=== PATIENT | male | born 1975 | race Caucasian/White ===

== ENCOUNTER 2022-10-30 15:15 | Inpatient (IN) | payer MEDICAID ==
[~2022-10-30] VITALS: Ht 165.1 cm; Wt 88.5 kg
[~2022-10-30 15:15] MED LIST: AMLO5TAB88 PO; CLON0.2T PO; METO25TA6 PO
[2022-10-30] MEDS ORDERED: DIPHENHYDRAMINE 50MG/ML VIAL IM STA (15:32)
[2022-10-30] MEDS ORDERED: OLANZAPINE 10 MG/VIAL IM STA (15:32)
[2022-10-30] MEDS ORDERED: LORAZEPAM 2MG/ML CPJ IM ONE (15:45)
[2022-10-30] MEDS ORDERED: SODIUM CHLORIDE 0.9% 1,000 ML IV ONE (15:45)
[2022-10-30 16:40] LABS: CLARITY URINE CLOUDY (CLEAR); COLOR URINE YELLOW (YELLOW); KETONES URINE NEGATIVE (NEGATIVE); LEUKOCYTE ESTERASE URINE TRACE (NEGATIVE); NITRITE URINE NEGATIVE (NEGATIVE); OCCULT BLOOD URINE 1+ (NEGATIVE); PH URINE 8.5 (4.5-8.0); PROTEIN URINE 4+ (NEGATIVE); UROBILINOGEN URINE 0.2 E.U./dL (0.2-1.0)
[2022-10-30 16:49] LABS: BASOPHILS % 0.7 % (0.0-2.0); EOSINOPHILS % 3.5 % (0.0-5.0); HEMATOCRIT. 34.5 % (42.0-52.0); HEMOGLOBIN. 11.8 g/dL (14.0-18.0); LYMPHOCYTES % 21.8 % (20.0-50.0); MEAN CORPUSCULAR HEMOGLOBIN 32.4 pg (28.0-32.0); MEAN CORPUSCULAR VOLUME 94.7 fL (80.0-94.0); MEAN PLATELET VOLUME 8.9 fl (7.4-10.4); MONOCYTES % 5.8 % (2.0-8.0); NEUTROPHILS % 68.2 % (40.0-76.0); PLATELET 243 x1000/uL (130-400); RED BLOOD CELL COUNT 3.64 mill/uL (4.7-6.1); RED CELL DISTRIBUTION WIDTH 13.8 % (11.6-14.6)
[2022-10-30 16:51] LABS: *AMPHETAMINES SCREEN URINE NEGATIVE (NEGATIVE); *BARBITURATES SCREEN URINE NEGATIVE (NEGATIVE); *BENZODIAZEPINES SCREEN URINE NEGATIVE (NEGATIVE); *COCAINE SCREEN URINE NEGATIVE (NEGATIVE); CANNABINOID URINE SCREEN NEGATIVE (NEGATIVE); METHADONE URINE SCREEN NEGATIVE (NEGATIVE); OPIATES URINE SCREEN NEGATIVE (NEGATIVE); PHENCYCLIDINE URINE SCREEN NEGATIVE (NEGATIVE)
[2022-10-30 16:59] LABS: CHLORIDE 96 mEq/L (98-107)
[2022-10-30 17:05] LABS: ETHANOL BLOOD < 10 mg/dL
[2022-10-30] MEDS ORDERED: LACTULOSE 20G/30ML UDC PO ONE (18:45)
[2022-10-30] MEDS ORDERED: LORAZEPAM 2MG/ML CPJ IV ONE ×3 (18:45→20:45)
[2022-10-30] MEDS ORDERED: DIPHENHYDRAMINE 50MG/ML VIAL IV ONE (20:45)
[2022-10-30] MEDS ORDERED: HALOPERIDOL LACTATE 5MG/ML VIAL IM ONE (20:45)
[2022-10-30] MEDS ORDERED: PANTOPRAZOLE SODIUM 40 MG/VIAL IV SCH (22:45)
[2022-10-30] MEDS ORDERED: ACETAMINOPHEN 325MG TABLET PO PRN ×2 (22:45)
[2022-10-30] MEDS ORDERED: ONDANSETRON HCL 4MG/2ML INJ IV PRN (22:45)
[2022-10-30] MEDS ORDERED: IPRATROPIUM/ALBUTEROL 0.5-3(2.5)MG/3ML NEB HHN PRN (22:45)
[2022-10-30] MEDS ORDERED: GUAIFENESIN 200MG/10ML SUGAR FREE UDC PO PRN (22:45)
[2022-10-30] MEDS ORDERED: MAGNESIUM/ALUMINUM HYDROXIDE/SIMETHICONE 30ML UDC PO PRN (22:45)
[2022-10-30] MEDS ORDERED: DOCUSATE SODIUM 100MG CAPSULE PO PRN (22:45)
[2022-10-30] MEDS ORDERED: CLONIDINE 0.1MG TABLET PO PRN (22:45)
[2022-10-31] VITALS (16 sets, daily range): BP systolic 101–157; BP diastolic 60–92
[2022-10-31] MEDS ORDERED: DEXTROSE 50% WATER 50ML SYRINGE IV PRN ×2 (01:30→03:00)
[2022-10-31] MEDS: PANTOPRAZOLE SODIUM 40 MG/VIAL IV SCH ×3 (01:46→19:08)
[2022-10-31] MEDS ORDERED: INSULIN LISPRO 100 UNITS/ML SUBCUT SCH ×2 (04:00→07:10)
[2022-10-31] MEDS: BLOOD SUGAR DIAGNOSTIC STRIP TEST SCH ×5 (04:54→20:00)
[2022-10-31] MEDS ORDERED: LACTULOSE 20G/30ML UDC PO SCH (06:00)
[2022-10-31 06:18] LABS: BASOPHILS % 0.5 % (0.0-2.0); HEMATOCRIT. 31.2 % (42.0-52.0); HEMOGLOBIN. 10.9 g/dL (14.0-18.0); LYMPHOCYTES % 15.1 % (20.0-50.0); MEAN CORPUSCULAR HEMOGLOBIN 32.8 pg (28.0-32.0); MEAN CORPUSCULAR VOLUME 93.7 fL (80.0-94.0); MEAN PLATELET VOLUME 8.6 fl (7.4-10.4); MONOCYTES % 7.1 % (2.0-8.0); NEUTROPHILS % 75.3 % (40.0-76.0); PLATELET 199 x1000/uL (130-400); RED BLOOD CELL COUNT 3.33 mill/uL (4.7-6.1); RED CELL DISTRIBUTION WIDTH 13.6 % (11.6-14.6)
[2022-10-31 06:23] LABS: CHLORIDE 103 mEq/L (98-107)
[2022-10-31] MEDS ORDERED: BLOOD SUGAR DIAGNOSTIC STRIP TEST SCH (06:40)
[2022-10-31 06:42] LABS: HDL CHOLESTEROL 48 mg/dL (40-59); LDL CHOLESTEROL 100 mg/dL (5-100); PHOSPHORUS 5.2 mg/dL (2.5-4.9); T4 FREE 1.03 ng/dL (0.76-1.46)
[2022-10-31 07:07] LABS: FOLIC ACID (FOLATE) SERUM 15.7 ng/mL (>5.38)
[2022-10-31] MEDS: INSULIN LISPRO 100 UNITS/ML SUBCUT SCH ×4 (08:00→20:00)
[2022-10-31] MEDS ORDERED: VANCOMYCIN 1.25GM PMX (XELLIA) 250 ML IV NR (15:00)
[2022-10-31] MEDS: AMLODIPINE 5MG TABLET PO SCH (15:37)
[2022-10-31] MEDS: METOPROLOL TARTRATE 25MG TABLET PO SCH (15:37)
[2022-10-31] MEDS: PIPERACILLIN/TAZOBACTAM 3.375 G in DEXTROSE 5% WATER 50 ML IV SCH ×2 (16:00→22:59)
[2022-10-31 18:31] LABS: CREATINE KINASE MB FRACTION 15.3 ng/mL (0.5-3.6)
[2022-10-31 19:58] LABS: HEPATITIS B SURFACE ANTIGEN NEGATIVE
[2022-11-01] VITALS (7 sets, daily range): BP systolic 114–141; BP diastolic 55–77
[2022-11-01] MEDS: BLOOD SUGAR DIAGNOSTIC STRIP TEST SCH ×6 (00:38→20:28)
[2022-11-01] MEDS: INSULIN LISPRO 100 UNITS/ML SUBCUT SCH ×6 (04:00→20:29)
[2022-11-01 07:58] LABS: BASOPHILS % 0.6 % (0.0-2.0); EOSINOPHILS % 5.2 % (0.0-5.0); HEMATOCRIT. 33.1 % (42.0-52.0); HEMOGLOBIN. 11.4 g/dL (14.0-18.0); LYMPHOCYTES % 19.5 % (20.0-50.0); MEAN CORPUSCULAR HEMOGLOBIN 32.7 pg (28.0-32.0); MEAN CORPUSCULAR VOLUME 95.3 fL (80.0-94.0); MEAN PLATELET VOLUME 9.2 fl (7.4-10.4); MONOCYTES % 6.3 % (2.0-8.0); NEUTROPHILS % 68.4 % (40.0-76.0); PLATELET 232 x1000/uL (130-400); RED BLOOD CELL COUNT 3.47 mill/uL (4.7-6.1); RED CELL DISTRIBUTION WIDTH 13.5 % (11.6-14.6)
[2022-11-01 08:10] LABS: PHOSPHORUS 4.9 mg/dL (2.5-4.9)
[2022-11-01] MEDS: PIPERACILLIN/TAZOBACTAM 3.375 G in DEXTROSE 5% WATER 50 ML IV SCH ×2 (09:10→20:28)
[2022-11-01] MEDS: PANTOPRAZOLE SODIUM 40 MG/VIAL IV SCH ×2 (09:10→17:38)
[2022-11-01] MEDS: AMLODIPINE 5MG TABLET PO SCH (09:11)
[2022-11-01] MEDS: METOPROLOL TARTRATE 25MG TABLET PO SCH (09:11)
[2022-11-01] MEDS ORDERED: VANCOMYCIN 500MG PREMIX 100 ML IV SCH (12:00)
[2022-11-02] VITALS: BP 140/81
[2022-11-02] MEDS: BLOOD SUGAR DIAGNOSTIC STRIP TEST SCH ×4 (00:40→16:40)
[2022-11-02 04:00] VITALS: BP 140/75
[2022-11-02 05:49] LABS: HEMATOCRIT 32.9 % (42.0-52.0); HEMOGLOBIN 11.5 g/dL (14.0-18.0); MEAN CORPUSCULAR HEMOGLOBIN 32.9 pg (28.0-32.0); MEAN CORPUSCULAR VOLUME 94.5 fL (80.0-94.0); PLATELET 230 x1000/uL (130-400); RED BLOOD CELL COUNT 3.48 mill/uL (4.7-6.1)
[2022-11-02] MEDS: INSULIN LISPRO 100 UNITS/ML SUBCUT SCH ×4 (06:41→16:40)
[2022-11-02 08:00] VITALS: BP 137/71
[2022-11-02] MEDS: METOPROLOL TARTRATE 25MG TABLET PO SCH (10:01)
[2022-11-02] MEDS: AMLODIPINE 5MG TABLET PO SCH (10:02)
[2022-11-02] MEDS: PANTOPRAZOLE SODIUM 40 MG/VIAL IV SCH ×2 (10:02→17:00)
[2022-11-02 12:00] VITALS: BP 166/82
[2022-11-02] MEDS: PIPERACILLIN/TAZOBACTAM 3.375 G in DEXTROSE 5% WATER 50 ML IV SCH (14:06)
[2022-11-02] MEDS ORDERED: IOHEXOL-350 100 ML BOTTLE ONE ×2 (15:23→17:08)
[2022-11-02] MEDS ORDERED: NIFE-72 PO (16:20)
[2022-11-02] MEDS ORDERED: SEVE800T8 PO (16:20)
[2022-11-02] MEDS ORDERED: FERR325T6 PO (16:21)
[2022-11-02] MEDS ORDERED: CALC667T2 PO (16:21)
[2022-11-02] MEDS ORDERED: METO-396 PO (16:22)
[2022-11-03] MEDS ORDERED: METOPROLOL SUCCINATE 50MG ER TABLET PO SCH (09:00)
== END 2022-11-02 19:10 | disposition left against medical advice (07) | DRG 720 ==
LOC: ER 15:15 → MICUSO 20:33 → 7EST 23:45
PROVIDERS: ADMIT Internal Medicine; ATTEND Internal Medicine
PROC: 5A1D70Z Performance of Urinary Filtration, Intermittent, Less than 6 Hours Per Day (ICD-10-PCS; principal; 2022-10-31)
DX: A41.9 Sepsis, unspecified organism (principal); G92.8 Other toxic encephalopathy; I13.2 Hypertensive heart and chronic kidney disease with heart failure and with stage 5 chronic kidney disease, or end stage renal disease; E11.649 Type 2 diabetes mellitus with hypoglycemia without coma; E83.39 Other disorders of phosphorus metabolism; D63.1 Anemia in chronic kidney disease; B69.0 Cysticercosis of central nervous system; N18.6 End stage renal disease; Z53.29 Procedure and treatment not carried out because of patient's decision for other reasons; Z20.822 Contact with and (suspected) exposure to COVID-19; E11.22 Type 2 diabetes mellitus with diabetic chronic kidney disease; I50.30 Unspecified diastolic (congestive) heart failure; Z79.899 Other long term (current) drug therapy; Z82.49 Family history of ischemic heart disease and other diseases of the circulatory system; Z99.2 Dependence on renal dialysis; Z83.3 Family history of diabetes mellitus; Z79.4 Long term (current) use of insulin
CPT/HCPCS: 36415; 70496; 70544; 70553; 71045; 76700; 80048; 80053; 80061; 80305; 80307; 80320; 80329; 81003; 82140; 82270; 82550; 82553; 82607; 82746; 82962; 83036; 83540; 83550; 83605; 83735; 83880; 84100; 84145; 84153; 84439; 84443; 84484; 85025; 85027; 86705; 86709; 86803; 87340; 87426; 90935; 93005; 93306; 93970; 97161; 99285; C9113; J1200; J1630; J1815; J2060; J2543; J3370; J3490; J7030; J7060; Q9967; G0103; G0480